=== PATIENT | male | born 1990 | race Two or more races ===

== ENCOUNTER 2018-01-17 23:54 | Emergency (ER) | payer OTHER ==
[~2018-01-17] VITALS: Ht 177.8 cm; Wt 72.1 kg
[~2018-01-17 23:54] MED LIST: CYCLOBENZAPRINE10 MG ORAL; IBUPROFEN600 MG ORAL; KEFLEX500 MG ORAL; NORCO 5-325 TA1 EACH ORAL
[2018-01-18] MEDS ORDERED: POLYTRIM OP SOL10 ML OPHTHALM (00:12)
--- NOTE | 2018-01-18 00:12 | Emergency Room Report ---
History of Present Illness General Chief Complaint: Eye Problems Source: Patient Present Illness HPI Is a 27-year-old male presents with a lump to his left upper eyelid. Onset supposedly today. 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 He said he was depending into buttermilk and part of it splashed into his left eye. Now with a lump to the left upper lid. No visual complaint. Denies any other symptoms. No blurry vision. Allergies: Coded Allergies: NO KNOWN ALLERGIES (Unverified Allergy, Unknown, 01/18/18) Patient History Past Medical History: see triage record, old chart reviewed Past Surgical History: none Pertinent Family History: none Social History: Denies: smoking Immunizations: other Reviewed Nursing Documentation: PMH: Agreed; PSxH: Agreed Nursing Documentation-PMH Past Medical History: No Stated History Review of Systems Eye: Reports: eye pain; Denies: blurred vision ENT: Denies: ear pain, nose congestion, throat swelling Respiratory: Denies: cough, shortness of breath Cardiovascular: Denies: chest pain, palpitations Gastrointestinal: Denies: abdominal pain, diarrhea, nausea, vomiting Musculoskeletal: Denies: back pain, joint pain Skin: Denies: rash Neurological: Denies: headache, numbness Endocrine: Denies: increased thirst, increased urine Hematologic/Lymphatic: Denies: easy bruising All Other Systems: negative except mentioned in HPI Physical Exam Vital Signs Date Time Temp Pulse Resp B/P (MAP) Pulse Ox O2 Delivery O2 Flow Rate FiO2 01/17/18 23:57 98.4 72 16 125/78 97 Room Air 98.4 vitals normal Sp02 EP Interpretation: reviewed, normal General Appearance: well appearing, no apparent distress, alert Head: normocephalic, atraumatic Eyes: left eye other - patient with internal stye to the left upper lid. No foreign body.; bilateral eye PERRL, bilateral eye EOMI ENT: hearing grossly normal, normal pharynx Neck: full range of motion, supple, no meningismus Respiratory: chest non-tender, lungs clear, normal breath sounds Cardiovascular #1: regular rate, rhythm, no murmur Gastrointestinal: normal bowel sounds, non tender, no mass, no organomegaly, no bruit, non-distended Musculoskeletal: back normal, gait/station normal, normal range of motion Psychiatric: mood/affect normal Skin: warm/dry Medical Decision Making Diagnostic Impression: Primary Impression: Hordeolum internum left upper eyelid ER Course Patient with a stye to the left upper eyelid. This is not work related. We'll discharge home. Last Vital Signs Date Time Temp Pulse Resp B/P (MAP) Pulse Ox O2 Delivery O2 Flow Rate FiO2 01/17/18 23:57 98.4 72 16 125/78 97 Room Air 98.4 Status: unchanged Disposition: HOME, SELF-CARE Condition: Stable Scripts Polymyxin/Trimethoprim (Polytrim Eye Drops) 10 Ml Drops 2 DROP OPHTHALM THREE TIMES A DAY, #1 EA Instill in affected eye for 7 days Prov: MORGAN KATHLEEN M.D. 01/18/18 Additional Instructions: Follow-up with your doctor in 7 days. If not better may need a referral to see claim professional. Return if worse. MORGAN KATHLEEN M.D. Jan 18, 2018 00:12
[2018-01-18 00:22] VITALS: BP 125/78
[2018-01-18 00:30] VITALS: BP 125/78
== END 2018-01-18 00:30 | disposition home or self-care (01) ==
LOC: EMR 01-18 00:05
DX: H00.014 Hordeolum externum left upper eyelid (principal)
CPT/HCPCS: 99283

== ENCOUNTER 2018-04-05 21:43 | Emergency (ER) | payer OTHER ==
[~2018-04-05] VITALS: Ht 170.2 cm; Wt 81.6 kg
[~2018-04-05 21:43] MED LIST changes: +POLYTRIM OP SOL10 ML OPHTHALM
[2018-04-05 22:00] VITALS: BP 113/72
[2018-04-05] MEDS ORDERED: RANITIDINE HCL150 MG ORAL (22:11)
[2018-04-05] MEDS ORDERED: ONDANSETRON ODT4 MG BC (22:11)
[2018-04-05] MEDS ORDERED: DICYCLOMINE HCL10 MG PO (22:11)
[2018-04-05] MEDS ORDERED: Dicyclomine HCl 10mg/5ml oral soln ORAL ONE (22:15)
[2018-04-05] MEDS ORDERED: Lidocaine 2% Visc 15ml soln ORAL ONE (22:15)
[2018-04-05] MEDS ORDERED: Mylanta II UD 30ml ORAL ONE (22:15)
[2018-04-05 22:20] VITALS: BP 113/72
--- NOTE | 2018-04-05 23:01 | Emergency Room Report ---
History of Present Illness General Chief Complaint: Abdominal Pain Source: Patient Present Illness HPI 27-year-old male presents ED complaining of abdominal pain 1 day. Pain is epigastric, sharp, 8 out of 10, nonradiating. Also notes one episode of vomiting. Started shortly after eating food. Denies chest pain. Denies flank pain. No other aggravating or relieving factors. Denies any other associated symptoms Allergies: Coded Allergies: NO KNOWN ALLERGIES (Unverified Allergy, Unknown, 01/18/18) Patient History Past Medical History: none Past Surgical History: none Pertinent Family History: none Social History: Denies: smoking, alcohol use, drug use Immunizations: UTD Reviewed Nursing Documentation: PMH: Agreed; PSxH: Agreed Nursing Documentation-PMH Past Medical History: No Stated History Review of Systems All Other Systems: negative except mentioned in HPI Physical Exam Vital Signs Date Time Temp Pulse Resp B/P (MAP) Pulse Ox O2 Delivery O2 Flow Rate FiO2 04/05/18 21:51 98.6 84 16 117/74 Room Air 98.6 Sp02 EP Interpretation: reviewed, normal General Appearance: no apparent distress, alert, GCS 15, non-toxic Head: normocephalic, atraumatic Eyes: bilateral eye normal inspection, bilateral eye PERRL ENT: hearing grossly normal, normal pharynx, no angioedema, normal voice Neck: full range of motion, supple/symm/no masses Respiratory: chest non-tender, lungs clear, normal breath sounds, speaking full sentences Cardiovascular #1: regular rate, rhythm, no edema Cardiovascular #2: 2+ carotid (R), 2+ carotid (L), 2+ radial (R), 2+ radial (L) , 2+ dorsalis pedis (R), 2+ dorsalis pedis (L) Gastrointestinal: normal bowel sounds, soft, non-distended, no guarding, no rebound, tenderness - epigastric Rectal: deferred Genitourinary: normal inspection, no CVA tenderness Musculoskeletal: back normal, gait/station normal, normal range of motion, non- tender Neurologic: alert, oriented x3, responsive, motor strength/tone normal, sensory intact, speech normal Psychiatric: judgement/insight normal, memory normal, mood/affect normal, no suicidal/homicidal ideation Reflexes: 3+ bicep (R), 3+ bicep (L), 3+ tricep (R), 3+ tricep (L), 3+ knee (R) , 3+ knee (L) Skin: normal color, no rash, warm/dry, well hydrated Lymphatic: no adenopathy Medical Decision Making Diagnostic Impression: Primary Impression: Gastritis Qualified Codes: K29.00 - Acute gastritis without bleeding ER Course Hospital Course 27-year-old M presents to ED with epigastric pain with N/V. differential diagnosis: gastritis, SBO, cholecystits Clinical course Patient placed on stretcher. On court recording monitor. After initial history, physical exam reveals male in no acute distress. Abdomen is soft. No guarding or rebound. There is some epigastric tenderness. I have low suspicion for acute abdomen. Vital stable. Patient given GI cocktail, Pepcid here. On reassessment patient feels better. Safe for discharge. Recommend close follow-up with PMD I feel this is a highly complex case requiring extensive working including EKG/ Rhythm strip, Xray/CT/US, Blood/urine lab work, repeat exams while in ED, and administration of strong opiates/narcotics for pain control, admission to hospital or close patient follow up. Diagnosis - gastritis Stable and discharged to home with prescriptions for Zantac, zofran, bentyl. Followup with PMD. Return to ED if symptoms recur or worsen Last Vital Signs Date Time Temp Pulse Resp B/P (MAP) Pulse Ox O2 Delivery O2 Flow Rate FiO2 04/05/18 21:51 98.6 84 16 117/74 Room Air 98.6 Status: improved Disposition: HOME, SELF-CARE Condition: Stable Scripts Ondansetron Odt* (ZOFRAN ODT*) 4 Mg Tab.rapdis 4 MG BC EVERY 6 HOURS PRN for Nausea & Vomiting, #10 TAB 0 Refills Prov: Gianni Goddard MD 04/05/18 Ranitidine Hcl* (ZANTAC*) 150 Mg Tablet 150 MG ORAL TWICE A DAY, #30 TAB Prov: Gianni Goddard MD 04/05/18 Dicyclomine Hcl* (DICYCLOMINE HCL*) 10 Mg Capsule 10 MG PO QID, #20 CAP Prov: Gianni Goddard MD 04/05/18 Referrals: NOT CHOSEN IPA/MD,REFERRING (PCP) Patient Instructions: Gastritis, Adult, [id number] Gianni Goddard MD Apr 05, 2018 23:01
== END 2018-04-05 22:20 | disposition home or self-care (01) ==
LOC: EMR 22:11
DX: K29.70 Gastritis, unspecified, without bleeding (principal)
CPT/HCPCS: 99284